=== PATIENT | male | born 1940 | race Caucasian/White ===

== ENCOUNTER 2018-03-01 15:05 | Inpatient (IN) ==
[2018-03-01] MEDS ORDERED: Naloxone 0.4 MG/ML INJ IVP PRN (17:44)
[2018-03-01 17:49] LABS: Basophils % 0.4 %; Eosinophils # 0.2 K/mcL (0.0-0.6); Eosinophils % 2.1 %; Hematocrit 25.9 % (37.5-50.1); Hemoglobin 8.2 g/dL (12.9-16.9); Immature Granulocytes % 0.6 % (0-4); Lymphocytes # 0.5 K/mcL (0.6-4.6); Lymphocytes % 5.2 %; Mean Corpuscular HGB Conc 31.7 g/dL (31.6-35.5); Mean Corpuscular Hemoglobin 26.4 pg (28.0-33.3); Mean Corpuscular Volume 83.3 fL (83.0-100.0); Mean Platelet Volume 8.3 fL (9.4-12.4); Monocytes # 0.7 K/mcL (0.0-1.3); Monocytes % 7.1 %; Neutrophils # 8.3 K/mcL (1.6-8.9); Platelet Count 264 K/mcL (140-400); Red Blood Count 3.11 M/mcL (4.19-5.50); Red Cell Distribution Width 14.3 % (11.5-14.5); Segmented Neutrophils % 84.6 %
[2018-03-01 18:11] LABS: BUN/Creatinine Ratio 18 (6-26); Blood Urea Nitrogen 16 mg/dL (8-23); Calcium 8.6 mg/dL (8.6-10.3); Carbon Dioxide 23 mEq/L (23-29); Chloride 104 mEq/L (98-107); Glucose 101 mg/dL (70-105); Osmolality,Calculated 281 (280-300); Potassium 3.8 mEq/L (3.5-5.1); Sodium 135 mEq/L (136-145); eGFR For Non-African Americans > 60 (> 60)
--- NOTE | 2018-03-01 18:15 | Internal Med History&Physical ---
Date of Encounter: 03/01/18 Time of Encounter: 18:11 Internal Medicine - H&P: HPI Chief complaint: Blood in stool; anemia Admitted From: Hospital to Hospital Transfer Plans for Post Hospital Care: Home History of present illness: The patient is a 77-year-old male. He is transferred to ICU from the [facility] in [place]. It was about 6 months ago when this patient was started on iron pills for treatment of his anemia. It was 4 days ago, when he had CBC repeated. 3 days later (yesterday) somebody called him and requested him to come to [place] emergency department. His hemoglobin from 02/25 was 6.7. Repeated one in [place] ER was 5.9. Associated with a WBC of 9.2 thousand. Subsequently, he was admitted to the [facility] in [place]. Then, he was transfused with 2 units of packed red blood cells. His last hemoglobin was checked today at 6 Moni was 7.1. The patient started having black stool in his bowel movements after initiation of treatment with iron pills. In the last a few weeks he noticed a little bit of blood in his stool (on several occasions). Denies abdominal pain, nausea and vomiting. He has never been diagnosed with a GI bleeding or other GI problem in the past. He takes occasionally 600 mg of ibuprofen for pain in his lower back and hips. He usually takes not more than a few tablets per week. The last one he took a few days ago. He does not take aspirin. 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 REVIEW OF SYSTEMS: All 14 organ systems were reviewed by me with the patient. Positive and pertinent negative findings are listed above. The rest of organ systems is negative. PHYSICAL EXAM: Skin: A little bit pale. Not showing any rash. Eyes: Sclera is white. There is no discharge from eyes. ENMT: Oral/pharyngeal mucosa is normal in appearance. There is no discharge from nose or ears. Respiratory: Normal breath sounds with no crackles and wheezes bilaterally. CV: Heart is regular with no gallop or murmur. GI: Abdomen is flat and soft with no palpable mass or visceromegaly. : There is no tenderness in patient's flanks bilaterally. Neuro exam: He has good strength in upper and lower extremities. He has normal eye movements. Psychiatric: He has normal affect. His thought process is appropriate to the situation. ADDITIONAL DATA: I am ordering a CBC, BMP and pro time INR. A/P: GI bleeding/acute blood loss anemia. GI diseases is consulted. They will proceed with upper and lower endoscopy tomorrow morning. I will keep him on nothing by mouth diet. He will get twice a day IV Protonix. H&H will be checked every 6 hours. He will get blood transfusion, if needed. Hypertension. We will hold his antihypertensives at this time. Gouty arthritis. I will hold his colchicine and allopurinol. Other problems seem to be stable/under control. See past medical history. Past Med Surg Social Fam HX - Past Medical History Medical history: arthritis, asthma, hypertension, osteoporosis Additional medical history: anemia, degenerative disk disease, hyperkalemia, gout, psoriasis Psychiatric history: no psych history - Past Surgical History Surgical History: no surgical history - Social History Smoking Status: Never smoker Alcohol use: none Drug use: none Internal Medicine - H&P: Meds Allergy/AdvReac Type Severity Reaction Status Date / Time Penicillins [PCN] Allergy Rash Verified 03/01/18 17:25 - Constitutional Vitals: Temp Pulse Resp BP Pulse Ox 98.2 F 72 24 133/73 97 03/01/18 16:00 03/01/18 17:00 03/01/18 17:00 03/01/18 17:00 03/01/18 17:00 General appearance: Present: A&O X 3, no acute distress, answers questions appropriately Exam: xx Internal Med - H&P Results - Labs CBC & Chem 7: 03/01/18 17:41 03/01/18 17:41 Labs: Short CBC 03/01/18 Range/Units 17:41 WBC 9.8 (4.3-11.1) K/mcL Hgb 8.2 L (12.9-16.9) g/dL Hct 25.9 L (37.5-50.1) % Plt Count 264 (140-400) K/mcL Neutrophils # 8.3 (1.6-8.9) K/mcL BMP 03/01/18 17:41 Sodium 135 L Potassium 3.8 Chloride 104 Carbon Dioxide 23 BUN 16 Creatinine 0.88 Glucose 101 Calcium 8.6 - Assessment and plan (1) GI bleed Current Visit: Yes Status: Acute Qualifiers: GI bleed type/associated pathology: unspecified gastrointestinal hemorrhage type Qualified Code(s): K92.2 - Gastrointestinal hemorrhage, unspecified (2) Acute blood loss anemia Current Visit: Yes Status: Acute (3) HTN (hypertension) Current Visit: Yes Status: Chronic Qualifiers: Hypertension type: essential hypertension Qualified Code(s): I10 - Essential (primary) hypertension (4) Gouty arthritis Current Visit: Yes Status: Chronic - Time Spent With Patient Total time spent is greater than 50% in coordination of care (as documented) at patient's floor/unit and/or counseling patient: 25 - 35 minutes - VTE Reasons for not Prescribing Prophylaxis: Medical contraindication (gi bleeding)
[2018-03-01 18:30] LABS: INR 1.3; Prothrombin Time 14.3 Seconds (9.4-12.1)
[2018-03-01] MEDS: Pantoprazole 40 MG VIAL IVP SCH (19:25)
[2018-03-01] MEDS: 0.9 % Sodium Chloride 1,000 ML IVC SCH (19:25)
[2018-03-01] MEDS ORDERED: Polyethylene Glycol 3350 255 GM POWDER PO ONE (19:59)
--- NOTE | 2018-03-01 20:09 | Gastroenterology Consult Note ---
Date of Encounter: 03/07/18 Time of Encounter: 19:00 - Assessment and plan (1) History of alcohol abuse Status: Suspected (2) GI bleed Status: Acute Qualifiers: GI bleed type/associated pathology: unspecified gastrointestinal hemorrhage type Qualified Code(s): K92.2 - Gastrointestinal hemorrhage, unspecified (3) Acute blood loss anemia Status: Acute (4) Gouty arthritis Status: Chronic - Time Spent With Patient Total time spent is greater than 50% in coordination of care (as documented) at patient's floor/unit and/or counseling patient: Greater than 35 minutes (Had to review the records from the [facility] in addition.) GI History of Present Illness - Data of Consult Patient: new to practice Requesting Physician: Siri Najera - Consult Narrative Reason for consult: Hematochezia, Anemia secondary to blood loss. Transferred from the [facility] History of present illness: Mr. Hoover is a 77 year old male who was transferred from the [facility] in [place] as the patient had passed a dark burgundy bowel movement and they did not have a sales manager [place] available. He apparently has been feeling weak for some weeks and a hemoglobin by the [facility] in [place] revealed 5.8 gm% - he was then called and asked to report to the [facility] in [place] which he did. He was given 2 units of packed cells and hemoglobin went up to 7.4 gm% He apparently spiked a fever during the transfusion. This was felt to be coincidental as this settled down fairly quickly. He told me he had been running intermittent fevers at home although he had not taken his temperature. He has never had a colonoscopy to date. Plan EGD and colonscopy - recommend 2 units of packed cells tonight in the ICU. Keep in ICU and watch for bleeding. Past Med Surg Social Fam HX - Past Medical History Medical history: arthritis, asthma, hypertension, osteoporosis Additional medical history: anemia, degenerative disk disease, hyperkalemia, gout, psoriasis Psychiatric history: no psych history - Past Surgical History Surgical History: no surgical history - Social History Smoking Status: Never smoker Alcohol use: none Drug use: none - Constitutional Constitutional: fatigue, fever(s) - Cardiovascular Additional Comment: NEGATIVE except a systolic murmur - Respiratory Additional Comment: Negative - Neurological Additional Comment: No focal deficit - Constitutional Vitals: Temp Pulse Resp BP Pulse Ox 98.2 F 74 14 145/65 96 03/01/18 16:00 03/01/18 19:38 03/01/18 19:00 03/01/18 19:00 03/01/18 19:00 - Head Head exam: Present: atraumatic Results - Labs CBC & Chem 7: 03/05/18 05:22 03/01/18 17:41 Labs: Last Result Calcium 8.6 mg/dL (8.6-10.3) 03/01/18 17:41 Entire Visit Hgb 8.2 g/dL (12.9-16.9) L 03/01/18 17:41 Hct 25.9 % (37.5-50.1) L 03/01/18 17:41 PT 14.3 Seconds (9.4-12.1) H 03/01/18 18:13 - ABG ABG results: PT/INR, D-dimer PT 14.3 Seconds (9.4-12.1) H 03/01/18 18:13 Consult Discharge Plan - Plan [facility]errals: [facility] [Primary Care Provider[facility] -
[2018-03-01 20:41] LABS: Hematocrit 23.2 % (37.5-50.1); Hemoglobin 7.5 g/dL (12.9-16.9)
[2018-03-02 00:33] LABS: Hematocrit 23.2 % (37.5-50.1); Hemoglobin 7.4 g/dL (12.9-16.9)
[2018-03-02] MEDS: Pantoprazole 40 MG VIAL IVP SCH ×2 (06:11→18:56)
[2018-03-02 06:12] LABS: Hematocrit 23.4 % (37.5-50.1); Hemoglobin 7.4 g/dL (12.9-16.9)
--- NOTE | 2018-03-02 07:42 | Anesthesia Evaluation PreOp ---
Date of Encounter: 03/02/18 Time of Encounter: 08:25 - Past History Planned Operation: EGD/colonoscopy Cardiac History: HTN, Hyperlipidemia, Other (can achieve 4 METS) Pulmonary History: Asthma PEWTER FABRICATOR History: Denies Any Significant HX Other Medical History: Bleeding Anesthesia History: No Prior Anesthetic Complications, Past Anesthesia (cataract surgery) Alcohol Use: none Drug use: none Medications and Allergies Allergy/AdvReac Type Severity Reaction Status Date / Time Penicillins [PCN] Allergy Rash Verified 03/01/18 17:25 - Meds/Allergy Pre-op Review Medications Reviewed: Yes Allergies Reviewed: Yes Beta Blockers on Current Med List: No Anesthesia Results - Labs 03/02/18 05:45 03/01/18 17:41 Anesthesia Exam Last Vital Signs Temp 98.3 F 03/02/18 08:15 Pulse 77 03/02/18 08:15 Resp 16 03/02/18 08:15 BP 142/75 03/02/18 08:15 Pulse Ox 99 03/02/18 08:15 Weight: 72 kg NPO (# of Hours): > 8 hrs - HEENT Pupil (Motor): Pupils equal, EOMI Mallampati: I Teeth: Missing, Poor dentition Oral Opening: Greater than 3 - PEWTER FABRICATOR LOC: Oriented - Cardiac Rhythm: Regular Murmur: Systolic - Pulmonary Breath Sounds: bilateral Clear Respiratory Effort: Symmetrical Anesthesia Assess/Plan ASA Score: 3 Modified Eveline Scale for Level of Consciousness: Cooperative, oriented, and tranquil Anesthetic Plan: MAC, Precautions (will administer meds slowly; murmur (no TTE available) of long-standing duration; excellent functional capacity; will not delay surgery for evaluation or records) Monitoring Plan: Standard Monitors Recovery Plan: PACU
[2018-03-02] MEDS ORDERED: Propofol 500 MG/50 ML INFUS..BTL ONE (08:33)
[2018-03-02] MEDS ORDERED: *HR* Etomidate 40 MG/20 ML VIAL IVP ONE (08:34)
--- NOTE | 2018-03-02 10:25 | Anesthesia Evaluation Post Op ---
Date of Encounter: 03/02/18 Time of Encounter: 09:30 - Vital Signs Vital Signs: Last Vital Signs Temp 98.3 F 03/02/18 08:15 Pulse 77 03/02/18 08:15 Resp 16 03/02/18 08:15 BP 142/75 03/02/18 08:15 Pulse Ox 99 03/02/18 08:15 - Lungs Lungs: Clear Ascult./Percussion - Airway Airway: Non-obstructed - Cardiovascular Regular Rate - Mental Status Mental Status: Alert & Oriented, Answers Appropriately - Pain Pain Scale: 1 - Nausea Vomiting Nausea Vomiting: Not Present - Hydration Hydration: NPO - Discharge PostOp Status: Transfer Patient to floor
[2018-03-02 12:33] LABS: Hematocrit 22.8 % (37.5-50.1); Hemoglobin 7.2 g/dL (12.9-16.9)
[2018-03-02] MEDS: 0.9 % Sodium Chloride 250 ML IVC SCH (14:00)
--- NOTE | 2018-03-02 14:32 | Gastroenterology Progress Note ---
Date of Encounter: 03/02/18 Time of Encounter: 09:00 - Assessment and plan (1) History of alcohol abuse Current Visit: Yes Status: Acute (2) GI bleed Current Visit: Yes Status: Acute Qualifiers: GI bleed type/associated pathology: unspecified gastrointestinal hemorrhage type Qualified Code(s): K92.2 - Gastrointestinal hemorrhage, unspecified (3) Acute blood loss anemia Current Visit: Yes Status: Acute (4) Gouty arthritis Current Visit: Yes Status: Chronic - Time Spent With Patient Total time spent is greater than 50% in coordination of care (as documented) at patient's floor/unit and/or counseling patient: - Subjective Interval history: Patient underwent EGD and colonoscopy(incomplete) today - large polypoid cir cumferential lesion in rectum starting about 10 cms into the rectum. - several hot bx taken. Was able to go through the narrow opening but, unable to see much beyond because, of presence of stool beyond. Keep on clear liquids and transfuse two more units of packed cells. Hemoglobin 7.4 gm% Team [facility]. Had a long discussion with patient and his . - Constitutional Vitals: Temp Pulse Resp BP Pulse Ox 98.2 F 74 17 147/73 98 03/02/18 14:15 03/02/18 14:23 03/02/18 14:23 03/02/18 14:23 03/02/18 14:23 Results - Labs CBC & Chem 7: 03/02/18 12:17 03/01/18 17:41 Labs: Last Result Calcium 8.6 mg/dL (8.6-10.3) 03/01/18 17:41 Entire Visit Hgb 7.2 g/dL (12.9-16.9) L 03/02/18 12:17 Hct 22.8 % (37.5-50.1) L 03/02/18 12:17 PT 14.3 Seconds (9.4-12.1) H 03/01/18 18:13 - ABG ABG results: PT/INR, D-dimer PT 14.3 Seconds (9.4-12.1) H 03/01/18 18:13 - VTE Reasons for not Prescribing Prophylaxis: Medical contraindication (gi bleeding) Consult Discharge Plan - Plan [facility]errals: [facility] [Primary Care Provider] -
[2018-03-02 19:56] LABS: Hematocrit 28.1 % (37.5-50.1)
[2018-03-02 19:57] LABS: Hemoglobin 8.9 g/dL (12.9-16.9)
--- NOTE | 2018-03-02 20:28 | Internal Med Progress Note ---
Hospitalist Progress Note - Encounter Date of Encounter: 03/02/18 Time of Encounter: 16:00 - Exam Vitals: Temp Pulse Resp BP Pulse Ox 98.7 F 75 16 145/66 98 03/02/18 16:40 03/02/18 20:00 03/02/18 20:00 03/02/18 20:00 03/02/18 20:00 Exam: xx - Assessment and Plan (1) GI bleed Current Visit: Yes Status: Acute (2) Acute blood loss anemia Current Visit: Yes Status: Acute (3) HTN (hypertension) Current Visit: Yes Status: Chronic (4) Gouty arthritis Current Visit: Yes Status: Chronic - Time Spent with Patient Total time spent is greater than 50% in coordination of care (as documented) at patient's floor/unit and/or counseling patient: 25 - 35 minutes Plan of Care Discussed with: patient Internal Medicine: Result - Labs CBC & Chem 7: 03/02/18 19:45 03/01/18 17:41 Labs: Short CBC 03/01/18 03/01/18 03/02/18 Range/Units 20:24 23:48 05:45 Hgb 7.5 L 7.4 L 7.4 L (12.9-16.9) g/dL Hct 23.2 L 23.2 L 23.4 L (37.5-50.1) % 03/02/18 03/02/18 Range/Units 12:17 19:45 Hgb 7.2 L 8.9 L D (12.9-16.9) g/dL Hct 22.8 L 28.1 L (37.5-50.1) % - ABG Interpretation ABG results: PT/INR, D-dimer PT 14.3 Seconds (9.4-12.1) H 03/01/18 18:13 - VTE Reasons for not Prescribing Prophylaxis: Medical contraindication (gi bleeding) Consult Discharge Plan - Plan [facility]errals: [facility] [Primary Care Provider] - (1) GI bleed Qualifiers: GI bleed type/associated pathology: unspecified gastrointestinal hemorrhage type Qualified Code(s): K92.2 - Gastrointestinal hemorrhage, unspecified (3) HTN (hypertension) Qualifiers: Hypertension type: essential hypertension Qualified Code(s): I10 - Essential (primary) hypertension
[2018-03-02] MEDS: 0.9 % Sodium Chloride 1,000 ML IVC SCH (23:33)
[2018-03-03 00:32] LABS: Hematocrit 26.6 % (37.5-50.1); Hemoglobin 8.6 g/dL (12.9-16.9)
[2018-03-03 06:07] LABS: Hematocrit 26.1 % (37.5-50.1); Hemoglobin 8.6 g/dL (12.9-16.9)
[2018-03-03] MEDS: Pantoprazole 40 MG VIAL IVP SCH (06:15)
[2018-03-03] MEDS ORDERED: CLOBETASOL PROPIONATE 15 GM TUBE TP PRN ×2 (10:43→11:13)
[2018-03-03] MEDS ORDERED: Naloxone 0.4 MG/ML INJ IVP PRN (11:13)
[2018-03-03] MEDS ORDERED: Pantoprazole 40 MG VIAL IVP SCH (18:00)
--- NOTE | 2018-03-03 23:58 | Internal Med Progress Note ---
Hospitalist Progress Note - Encounter Date of Encounter: 03/03/18 Time of Encounter: 17:00 - Subjective Interval History: SUBJECTIVE: The patient feels pretty good today. He is stronger. Denies abdominal pain, nausea and vomiting. He had a small bowel movement today morning; no blood was seen. OBJECTIVE: Skin: Free of rash and discoloration. ENMT: Oral/pharyngeal mucosa is normal in appearance. Eyes: Sclera is white. There is no discharge from eyes. Respiratory: Normal breath sounds; no crackles or wheezes. CV: Heart is regular; no gallop or murmur. GI: Abdomen is soft and not tender. There is no palpable mass or visceromegaly. Neuro: There is no focal deficits. 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 It is likely source of off and on bleeding. Today morning hemoglobin is 8.6 (after transfusion of 2 units of packed red blood cells); was 7.2 yesterday early afternoon. ASSESSMENT AND PLAN: Rectal mass/GI bleeding/acute blood loss anemia. The patient will need surgery. We are trying to transfer him to the [facility] system. He has no other insurance. Meanwhile, we will continue supportive treatments. H&H to be checked every 6 hours. Will advance his diet to cardiac. I will stop his IV Protonix. Hypertension. He does not need any antihypertensives at this time. Gouty arthritis. He is on oral allopurinol. - Exam Vitals: Temp Pulse Resp BP Pulse Ox 99.8 F H 88 14 151/57 96 03/03/18 18:18 03/03/18 18:18 03/03/18 18:18 03/03/18 18:18 03/03/18 18:18 Exam: xx - Assessment and Plan (1) Rectal mass Current Visit: Yes Status: Acute (2) GI bleed Current Visit: Yes Status: Acute (3) Acute blood loss anemia Current Visit: Yes Status: Acute (4) HTN (hypertension) Current Visit: Yes Status: Chronic (5) Gouty arthritis Current Visit: Yes Status: Chronic - Time Spent with Patient Total time spent is greater than 50% in coordination of care (as documented) at patient's floor/unit and/or counseling patient: 25 - 35 minutes Plan of Care Discussed with: patient Internal Medicine: Result - Labs CBC & Chem 7: 03/03/18 05:50 03/01/18 17:41 Labs: Short CBC 03/03/18 03/03/18 Range/Units 00:16 05:50 Hgb 8.6 L 8.6 L (12.9-16.9) g/dL Hct 26.6 L 26.1 L (37.5-50.1) % - ABG Interpretation ABG results: PT/INR, D-dimer PT 14.3 Seconds (9.4-12.1) H 03/01/18 18:13 - VTE Reasons for not Prescribing Prophylaxis: Medical contraindication (gi bleeding) Consult Discharge Plan - Plan [facility]errals: [facility] [Primary Care Provider] - (2) GI bleed Qualifiers: GI bleed type/associated pathology: unspecified gastrointestinal hemorrhage type Qualified Code(s): K92.2 - Gastrointestinal hemorrhage, unspecified (4) HTN (hypertension) Qualifiers: Hypertension type: essential hypertension Qualified Code(s): I10 - Essential (primary) hypertension
[2018-03-04] MEDS: Cyanocobalamin (B-12) 1,000 MCG TABLET PO SCH (08:42)
[2018-03-04] MEDS ORDERED: Cyanocobalamin (B-12) 1,000 MCG TABLET PO SCH (09:00)
[2018-03-04] MEDS ORDERED: Isovue-370 500 ML INFUS..BTL IV ONE (11:15)
[2018-03-04 12:13] LABS: Hematocrit 26.4 % (37.5-50.1); Hemoglobin 8.6 g/dL (12.9-16.9)
--- NOTE | 2018-03-04 14:09 | Discharge Summary ---
- NOTES TO OUTPATIENT PROVIDER Notes to Outpatient Provider: With PCP at the [facility] Orders not resulted at time of discharge: Pending orders 03/02/18 09:01 Surgical Pathology [PTH] Routine 03/04/18 14:30 abdominal/pelvis CT with contrast [CT abd pelvis w iv and oral] [CT] Stat 03/05/18 04:00 CBC [Complete Blood Count] [HEME] AM 0400 Date of Encounter: 03/05/18 Time of Encounter: 14:07 - Discharge Diagnosis (1) GI bleed Priority: Primary Status: Acute Qualifiers: Qualified Code(s): K92.2 - Gastrointestinal hemorrhage, unspecified (2) Acute blood loss anemia Priority: Primary Status: Acute (3) HTN (hypertension) Priority: Secondary Status: Chronic Qualifiers: Qualified Code(s): I10 - Essential (primary) hypertension (4) Gouty arthritis Priority: Secondary Status: Chronic (5) Rectal mass Priority: Primary Status: Acute Hospital course: Mr. Hoover is a 77 year old male with PMH pf alcohol abuse, arthritis and chronic anemia. Patient was in his usual state of health till 4 days prior to presentation when he had a CBC done and was called and requested him to come to [place] emergency department. His hemoglobin from 02/25 was 6.7. Repeated one in [place] ER was 5.9. Associated with a WBC of 9.2 thousand. Subsequently, he was admitted to the [facility] in [place]. Then, he was transfused with 2 units of packed red blood cells. His last hemoglobin was checked on admission on 03/01 was 7.1. He reported having melanotic stools and GI was consulted. He received 2 more units of red blood cells here at this facility. He remained hemodynamically stable throughout his admission here He is s/p EGD and colonoscopy (incomplete) 03/02 which showed a large polyploid circumferential lesion in rectum starting about 10 cms into the rectum. - Several hot bx taken. On 03/04, arrangement made for the patient to transfer to the [facility], however, patient opted for a transfer to [facility] because it is closer to his home and he has been there before. dish room worker notified and attempted to verify patient's insurance. On 03/05, patient again seen at the bedside with his with no new complaints, bleeding since stopped, hemoglobin stable at 8.2 status post 2 units of blood transfusion and he has no new complaints. He is adamant on going to [facility] with or without confirmation of his insurance Calls was made to [facility] for transfer to the hospitalist service and for further management. Plan of care discussed with the patient verbalized understanding. Discharge happened on 03/05 not 03/04, as above Discharge discussed with: patient, social work, case management - Time Spent with Patient Total time spent providing and/or coordinating discharge services: Greater than 30 minutes (55 mins spent with face to face, calls to transfer center, discussion with SW and documentation) - Discharge Medications Home Medications: Acetaminophen [Tylenol] 325 - 650 mg PO DAILY PRN 03/02/18 [History] Allopurinol [Zyloprim 100 MG] 100 mg PO DAILY 03/02/18 [History] Amlodipine Besylate 10 mg PO DAILY 03/02/18 [History] Ascorbic Acid [C-500] 1,000 mg PO DAILY 03/02/18 [History] Clobetasol Propionate 0.05% [Temovate] 1 appl TP DAILY PRN 03/02/18 [History] Cyanocobalamin (B-12) [Vitamin B12] 1,000 mcg PO DAILY 03/02/18 [History] Ferrous Sulfate [Iron] 325 mg PO BID 03/02/18 [History] Lactobacillus [Culturelle] 1 each PO DAILY 03/02/18 [History] Losartan Potassium [Cozaar] 100 mg PO DAILY 03/02/18 [History] Metoprolol [Lopressor] 50 mg PO BID 03/02/18 [History] Allergies/Adverse Reactions: Allergy/AdvReac Type Severity Reaction Status Date / Time Penicillins [PCN] Allergy Rash Verified 03/01/18 17:25 Date of admission: 03/01/18 16:08 [facility] care physician: [facility] Consults: 03/01/18 18:22 Consult to Gastroenterology [CONS] Routine Consulting Provider: [facility] Reason for Consult: GI bleed Time Notified: 17:00 Call Completed: Yes 03/02/18 12:11 Consult to Case Management [CONS] Routine Comment: TRANSFER TO [facility] NEEDED.. 03/04/18 10:45 Consult to Surgery [CONS] Routine Consulting Provider: Surgery [facility] Reason for Consult: Rectal mass, kindly evaluate for surgery Time Notified: 10:51 Call Completed: Yes 03/04/18 11:19 Consult to Oncology [CONS] Stat Consulting Provider: Oncology [facility] Reason for Consult: Rectal mass Call Completed: No Discharging clinician: Tom Pacheco Anticipated date of discharge: 03/04/18 - Constitutional Vitals: Temp Pulse Resp BP Pulse Ox 98.2 F 76 16 157/68 99 03/04/18 12:16 03/04/18 12:16 03/04/18 12:16 03/04/18 12:16 03/04/18 12:16 General appearance: Present: A&O X 3, no acute distress, answers questions mark ropriately Exam: On exam, he is not in distress Skin: A little bit pale. Not showing any rash. Eyes: Sclera is white. There is no discharge from eyes. ENMT: Oral/pharyngeal mucosa is normal in appearance. There is no discharge from nose or ears. Respiratory: Normal breath sounds with no crackles and wheezes bilaterally. CV: Heart is regular with loud systolic murmur GI: Abdomen is flat and soft with no palpable mass or visceromegaly. : There is no tenderness in patient's flanks bilaterally. Neuro exam: He has good strength in upper and lower extremities. He has normal eye movements. Psychiatric: He has normal affect. His thought process is appropriate to the situation. - Patient Status Disposition: Transfer [facility] Hosp Condition: Fair Functional capacity at discharge: independent ambulation Overall status at discharge: patient is not back to baseline - Discharge Instructions Follow [facility] With: [facility] [Primary Care Provider] - - Diet and Activity Activity: resume usual activities as tolerated Diet: low salt diet - VTE Reasons for not Prescribing Prophylaxis: Medical contraindication (gi bleeding)
[2018-03-04] MEDS ORDERED: Isovue-370 500 ML INFUS..BTL PO ONE (14:52)
--- NOTE | 2018-03-04 16:18 | General Surgery Consult Note ---
<IgorAnthony S - Last Filed: 03/04/18 15:48> Date of Encounter: 03/04/18 Time of Encounter: 11:00 Assessment and Plan (1) Rectal mass Current Visit: Yes Status: Acute Rectal mass identified on colonoscopy (03/02) Ordered CT ab/pelvis with IV and oral contrast to stage mass, showed rectal mass with evidence of local disease spread, colonic diverticulosis without diverticulitis, asymmetric bladder wall thickening (possibly cystitis), small BL pleural effusions Rectal mass biopsied, waiting path results CEA normal at 1.5 Consulted oncology, will appreciate recommendations Will continue to follow, patient may be transferred to another facility per his wishes (2) GI bleed Current Visit: Yes Status: Acute Patient has received a total of 4 units of PRBCs (2 at [facility] and 2 at [facility]) Patient's Hgb is stable 8.6 > 8.6 today BP 155/65 today Patient states he has not had any gross GI bleeding since his colonoscopy (03/02) Will trend H/H Qualifiers: GI bleed type/associated pathology: unspecified gastrointestinal hemorrhage type Qualified Code(s): K92.2 - Gastrointestinal hemorrhage, unspecified (3) HTN (hypertension) Current Visit: Yes Status: Chronic Management per primary team BP 155/65 Qualifiers: Hypertension type: essential hypertension Qualified Code(s): I10 - Essential (primary) hypertension History of Present Illness Consult date: 03/04/18 Reason for consult: other (rectal mass) Requesting physician: Tom Pacheco History of present illness: 77 year old male with PMHx of HTN presented to [facility] (03/01) with GI bleeding. Surgery was consulted for rectal mass identified on colonoscopy. Patient states he went to [facility] in [place] a few months ago for fatigue and was found to be anemic. He was started on iron supplements and continued to have his Hgb monitored. Patient states his hemoglobin dropped to 6.9 during his most recent visit and he was transferred to [facility]. Patient was found to have GI bleeding and given 2 units of PRBCs. He was transferred to [facility] for further care on 03/01, given 2 more units of PRBCs, and had a colonoscopy on 03/02. The colonoscopy showed a rectal mass which was biopsied. Patient states he has not had any rectal bleeding since the colonoscopy. He denies abdominal pain, nausea, vomiting. Patient had non-bloody BM yesterday. Patient denies surgical history. Patient admits to a family history of prostate cancer in brother. Of note, patient is asking to be transferred to [facility] because he is from the area and has family there. Past Med Surg Social Fam HX - Past Medical History Medical history: arthritis, asthma, hypertension, osteoporosis Additional medical history: anemia, degenerative disk disease, hyperkalemia, gout, psoriasis Psychiatric history: no psych history - Past Surgical History Surgical History: no surgical history - Social History Smoking Status: Never smoker Alcohol use: none Drug use: none Medications and Allergies Acetaminophen [Tylenol] 325 - 650 mg PO DAILY PRN 03/02/18 [History] Allopurinol [Zyloprim 100 MG] 100 mg PO DAILY 03/02/18 [History] Ascorbic Acid [C-500] 1,000 mg PO DAILY 03/02/18 [History] Clobetasol Propionate 0.05% [Temovate] 1 appl TP DAILY PRN 03/02/18 [History] Cyanocobalamin (B-12) [Vitamin B12] 1,000 mcg PO DAILY 03/02/18 [History] Ferrous Sulfate [Iron] 325 mg PO BID 03/02/18 [History] Losartan Potassium [Cozaar] 100 mg PO DAILY 03/02/18 [History] Metoprolol [Lopressor] 50 mg PO BID 03/02/18 [History] RX: Amlodipine Besylate 10 mg PO DAILY 03/02/18 [History] RX: Lactobacillus [Culturelle] 1 each PO DAILY 03/02/18 [History] Allergy/AdvReac Type Severity Reaction Status Date / Time Penicillins [PCN] Allergy Rash Verified 03/01/18 17:25 Review of Systems All systems PM: The remainder of the systems were reviewed and are negative General Surgery Exam Initial Vital Signs Temp Pulse Resp BP Pulse Ox 98.2 F 67 14 97/77 96 03/01/18 16:00 03/01/18 16:00 03/01/18 16:00 03/01/18 16:00 03/01/18 16:00 - General physical appearance well developed, well nourished - Respiratory normal expansion, normal respiratory effort - Cardiovascular Cardiovascular exam: Present: RRR - Abdomen Abdomen general surgery: Present: bowel sounds present, soft, non tender - Integumentary Integumentary general surgery: Present: warm and dry, no abnormal pigmentation - Psychiatric Psychiatric general surgery: Present: A&Ox3, appropriate Exam Initial Vital Signs Temp Pulse Resp BP Pulse Ox 98.2 F 67 14 97/77 96 03/01/18 16:00 03/01/18 16:00 03/01/18 16:00 03/01/18 16:00 03/01/18 16:00 Results - Labs 03/04/18 11:50 03/01/18 17:41 Abnormal lab results RBC 3.11 M/mcL (4.19-5.50) L 03/01/18 17:41 Hgb 8.6 g/dL (12.9-16.9) L 03/04/18 11:50 Hct 26.4 % (37.5-50.1) L 03/04/18 11:50 MCH 26.4 pg (28.0-33.3) L 03/01/18 17:41 MPV 8.3 fL (9.4-12.4) L 03/01/18 17:41 Lymphocytes # 0.5 K/mcL (0.6-4.6) L 03/01/18 17:41 PT 14.3 Seconds (9.4-12.1) H 03/01/18 18:13 Sodium 135 mEq/L (136-145) L 03/01/18 17:41 All other labs normal. Consult Discharge Plan - Plan [facility]errals: [facility]Primary Care Provider[facility] - <Lan Palomares - Last Filed: 03/04/18 23:30> Review of Systems All systems PM: The remainder of the systems were reviewed and are negative General Surgery Exam Initial Vital Signs Temp Pulse Resp BP Pulse Ox 98.2 F 67 14 97/77 96 03/01/18 16:00 03/01/18 16:00 03/01/18 16:00 03/01/18 16:00 03/01/18 16:00 Exam Initial Vital Signs Temp Pulse Resp BP Pulse Ox 98.2 F 67 14 97/77 96 03/01/18 16:00 03/01/18 16:00 03/01/18 16:00 03/01/18 16:00 03/01/18 16:00 Results - Labs 03/04/18 11:50 10/27/18 17:41 Abnormal lab results RBC 3.11 M/mcL (4.19-5.50) L 03/01/18 17:41 Hgb 8.6 g/dL (12.9-16.9) L 03/04/18 11:50 Hct 26.4 % (37.5-50.1) L 03/04/18 11:50 MCH 26.4 pg (28.0-33.3) L 03/01/18 17:41 MPV 8.3 fL (9.4-12.4) L 03/01/18 17:41 Lymphocytes # 0.5 K/mcL (0.6-4.6) L 03/01/18 17:41 PT 14.3 Seconds (9.4-12.1) H 03/01/18 18:13 Sodium 135 mEq/L (136-145) L 03/01/18 17:41 All other labs normal. - Attending Attestation I examined this patient and my medical decision-making was reviewed with the Resident Physician. I agree with the documented findings, disposition and treatment plan as described except to the extent set forth below. The patient is seen and evaluated with resident on rounds. I personally reviewed the endoscopic images. Findings are consistent with a bleeding rectal cancer. I have ordered CAT scan of the abdomen and pelvis as well as CEA lev els. Biopsies are pending at time of consultation and I imagine will be available tomorrow. He will require neoadjuvant therapy with chemotherapy and radiation prior to any attempt at surgical resection. We will get oncology on board as soon as possible. Colostomy diversion for obstruction only in an emergency. Lan Palomares MD FACS
--- NOTE | 2018-03-04 17:01 | Oncology Inp Consult Note ---
<Mary Ann Arredondo L - Last Filed: 03/05/18 13:01> Date of Encounter: 03/04/18 Time of Encounter: 16:00 Assessment and Plan (1) Rectal mass Status: Acute Assessment and plan: Colonoscopy 03/02/18 revealed a polypoid paritally obstructing large mass in the proximal rectum and in the mid rectum. The mass is circumferential. Length of mass was unable to be determined secondary to poor preparation. Biopsy was obtained. 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 CT abdomen/pelvis with IV contrast-ordered, final report pending Will need CT chest with IV contrast to complete staging (need for Pelvic MRI is TBD) CEA- 1.5 Further treatment recommendations pending CT chest/abdomen/pelvis to determine extent of disease and appropriate for upfront resection versus management of metastatic disease (2) Acute blood loss anemia Status: Acute Assessment and plan: Secondary to rectal mass Hgb 8.6 S/P 2 units PRBC Microcytic, Hypochromic anemia Check Iron panel and ferritin - Data of Consult Patient: new to practice Consult date: 03/04/18 Requesting Physician: Tom Pacheco MD Primary Care Provider: PCP [place] - Consult Narrative Reason for consult: Rectal adenocarcinoma History of present illness: Mr. Hoover is a 77 year old male with past medical history significant for HTN, presented to [facility] as transfer to [facility] on 03/01/18 with GIB. He has a history of CASEY that was diagnosed about 6 months ago, he has been on oral iron. He presented to [facility] for a blood transfusion and transferred to [facility] for concern for active GIB. He has had melanic stools since starting oral iron, he does noted occasional hematochezia at times. He denies abdominal pain, nausea, vomiting, diarrhea, appetite changes or unintended weight loss. No personal history of cancer, patients brother has a history of prostate cancer. GI was consulted upon his admission EGD 03/02/18 reveals gastritis, no stigmata of bleeding. Colonoscopy 03/02/18 revealed a polypoid paritally obstructing large mass in the proximal rectum and in the mid rectum. The mass is circumferential. Length of mass was unable to be determined secondary to poop preparation. Biopsy was obtained. 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 Past Med Surg Social Fam HX - Past Medical History Medical history: arthritis, asthma, hypertension, osteoporosis Additional medical history: anemia, degenerative disk disease, hyperkalemia, gout, psoriasis Psychiatric history: no psych history - Past Surgical History Surgical History: no surgical history - Social History Smoking Status: Never smoker Alcohol use: none Drug use: none Medications and Allergies Acetaminophen [Tylenol] 325 - 650 mg PO DAILY PRN 03/02/18 [History] Allopurinol [Zyloprim 100 MG] 100 mg PO DAILY 03/02/18 [History] Ascorbic Acid [C-500] 1,000 mg PO DAILY 03/02/18 [History] Clobetasol Propionate 0.05% [Temovate] 1 appl TP DAILY PRN 03/02/18 [History] Cyanocobalamin (B-12) [Vitamin B12] 1,000 mcg PO DAILY 03/02/18 [History] Ferrous Sulfate [Iron] 325 mg PO BID 03/02/18 [History] Losartan Potassium [Cozaar] 100 mg PO DAILY 03/02/18 [History] Metoprolol [Lopressor] 50 mg PO BID 03/02/18 [History] RX: Amlodipine Besylate 10 mg PO DAILY 03/02/18 [History] RX: Lactobacillus [Culturelle] 1 each PO DAILY 03/02/18 [History] Allergy/AdvReac Type Severity Reaction Status Date / Time Penicillins [PCN] Allergy Rash Verified 03/01/18 17:25 Constitutional: Present: fatigue, weakness. Absent: anorexia, chills, fever(s), weight loss Eyes: Absent: change in vision Nose, mouth and throat: Absent: dysphagia, odynophagia Cardiovascular: Absent: chest pain, palpitations Gastrointestinal: Present: hematochezia, melena. Absent: abdominal pain, change in bowel habits, constipation, diarrhea, hematemesis, nausea, vomiting Additional comments: denies dysuria Musculoskeletal: Present: muscle weakness Integumentary: Absent: wounds Neurological: Absent: focal weakness, frequent falls Psychiatric: Absent: change in appetite Hematologic/Lymphatic: Present: as per HPI Oncology - Exam - Constitutional Vitals: Temp Pulse Resp BP Pulse Ox 98.8 F 78 15 155/65 97 03/04/18 15:33 03/04/18 15:33 03/04/18 15:33 03/04/18 15:33 03/04/18 15:33 General appearance: cooperative, no acute distress, no febrile - Head Head exam: Present: atraumatic - Eye Eye exam: Present: normal appearance - ENT ENT exam: Present: mucous membranes moist - Respiratory Respiratory exam: Present: CTAB. Absent: respiratory distress - Cardiovascular Cardiovascular exam: Present: RRR, +S1, +S2 - GI/Abdominal GI/Abdominal exam: Present: normal bowel sounds, soft. Absent: guarding, rebound, tenderness - Extremities Exam Extremities exam: Absent: calf tenderness - Neurological Exam Neurological exam: Present: alert, oriented X3, no focal deficits, strengths equal and symetr throughout - Psychiatric Psychiatric exam: Present: normal affect, normal mood - Skin Skin exam: Present: dry, intact, normal color, warm Consult Discharge Plan - Plan [facility]errals: [facility] [Primary Care Provider] - <Tho Gonsalez - Last Filed: 03/05/18 17:20> Date of Encounter: 03/05/18 - Data of Consult Requesting Physician: Tom Pacheco MD Primary Care Provider: PCP [place] - Consult Narrative History of present illness: Patient with severe anemia hopsitalized with bleeding s/p colonoscopy findings reviewed discussed with patient. He denied wt loss. Final path pending. He will be a candidate for neoadjuvant chemoradiation, surgery once staging/path is available. He wishes to receive treatment close rto home in [place]. I examined this patient and my medical decision-making was reviewed with the Advanced Practice Nurse, Mary Ann Arredondo. I agree with the documented findings, disposition and treatment plan as described except to the extent set forth below. Oncology - Exam - Constitutional Vitals: Temp Pulse Resp BP Pulse Ox 98.7 F 77 16 149/63 97 03/05/18 06:26 03/05/18 06:26 03/05/18 06:26 03/05/18 06:26 03/05/18 06:26 Oncology - Results Labs: 03/05/18 03/04/18 03/04/18 05:22 11:50 11:50 WBC 6.6 RBC 3.12 L Hgb 8.2 L 8.6 L Hct 25.0 L 26.4 L MCV 80.1 L MCH 26.3 L MCHC 32.8 RDW 15.3 H Plt Count 181 MPV 8.4 L Immature Gran % 0.8 Seg Neutrophils % 75.0 Lymphocytes % 8.8 Monocytes % 11.5 Eosinophils % 3.3 Basophils % 0.6 Neutrophils # 5.0 Lymphocytes # 0.6 Monocytes # 0.8 Eosinophils # 0.2 Basophils # 0.0 PT INR Sodium Potassium Chloride Carbon Dioxide BUN Creatinine Est GFR ( Amer) Est GFR (Non-Af Amer) BUN/Creatinine Ratio Glucose POC Glucose Calculated Osmolality Calcium Carcinoembryonic Ag 1.5 Blood Type Antibody Screen Crossmatch 03/03/18 03/03/18 03/02/18 05:50 00:16 19:45 WBC RBC Hgb 8.6 L 8.6 L 8.9 L D Hct 26.1 L 26.6 L 28.1 L MCV MCH MCHC RDW Plt Count MPV Immature Gran % Seg Neutrophils % Lymphocytes % Monocytes % Eosinophils % Basophils % Neutrophils # Lymphocytes # Monocytes # Eosinophils # Basophils # PT INR Sodium Potassium Chloride Carbon Dioxide BUN Creatinine Est GFR ( Amer) Est GFR (Non-Af Amer) BUN/Creatinine Ratio Glucose POC Glucose Calculated Osmolality Calcium Carcinoembryonic Ag Blood Type Antibody Screen Crossmatch 03/02/18 03/02/18 03/01/18 12:17 05:45 23:48 WBC RBC Hgb 7.2 L 7.4 L 7.4 L Hct 22.8 L 23.4 L 23.2 L MCV MCH MCHC RDW Plt Count MPV Immature Gran % Seg Neutrophils % Lymphocytes % Monocytes % Eosinophils % Basophils % Neutrophils # Lymphocytes # Monocytes # Eosinophils # Basophils # PT INR Sodium Potassium Chloride Carbon Dioxide BUN Creatinine Est GFR ( Amer) Est GFR (Non-Af Amer) BUN/Creatinine Ratio Glucose POC Glucose Calculated Osmolality Calcium Carcinoembryonic Ag Blood Type Antibody Screen Crossmatch 03/01/18 03/01/18 03/01/18 20:24 20:24 18:13 WBC RBC Hgb 7.5 L Hct 23.2 L MCV MCH MCHC RDW Plt Count MPV Immature Gran % Seg Neutrophils % Lymphocytes % Monocytes % Eosinophils % Basophils % Neutrophils # Lymphocytes # Monocytes # Eosinophils # Basophils # PT 14.3 H INR 1.3 Sodium Potassium Chloride Carbon Dioxide BUN Creatinine Est GFR ( Amer) Est GFR (Non-Af Amer) BUN/Creatinine Ratio Glucose POC Glucose Calculated Osmolality Calcium Carcinoembryonic Ag Blood Type A POSITIVE Antibody Screen NEGATIVE Crossmatch See Detail 03/01/18 03/01/18 03/01/18 17:41 17:41 16:05 WBC 9.8 RBC 3.11 L Hgb 8.2 L Hct 25.9 L MCV 83.3 MCH 26.4 L MCHC 31.7 RDW 14.3 Plt Count 264 MPV 8.3 L Immature Gran % 0.6 Seg Neutrophils % 84.6 Lymphocytes % 5.2 Monocytes % 7.1 Eosinophils % 2.1 Basophils % 0.4 Neutrophils # 8.3 Lymphocytes # 0.5 L Monocytes # 0.7 Eosinophils # 0.2 Basophils # 0.0 PT INR Sodium 135 L Potassium 3.8 Chloride 104 Carbon Dioxide 23 BUN 16 Creatinine 0.88 Est GFR ( Amer) > 60 Est GFR (Non-Af Amer) > 60 BUN/Creatinine Ratio 18 Glucose 101 POC Glucose 98 Calculated Osmolality 281 Calcium 8.6 Carcinoembryonic Ag Blood Type Antibody Screen Crossmatch - Attending Attestation I examined this patient and my medical decision-making was reviewed with the Advanced Practice Nurse, Mary Ann Arredondo. I agree with the documented findings, disposition and treatment plan as described except to the extent set forth below. Inpatient Charges Provider: Dr. Deven Gonsalez Consult - Inpatient: [id number]
[2018-03-04] MEDS: 0.9 % Sodium Chloride 250 ML IVC SCH ×2 (20:08→20:10)
[2018-03-04] MEDS: 0.9 % Sodium Chloride 1,000 ML IVC SCH (20:10)
[2018-03-05 05:41] LABS: Basophils % 0.6 %; Eosinophils # 0.2 K/mcL (0.0-0.6); Eosinophils % 3.3 %; Hemoglobin 8.2 g/dL (12.9-16.9); Immature Granulocytes % 0.8 % (0-4); Lymphocytes # 0.6 K/mcL (0.6-4.6); Lymphocytes % 8.8 %; Mean Corpuscular HGB Conc 32.8 g/dL (31.6-35.5); Mean Corpuscular Hemoglobin 26.3 pg (28.0-33.3); Mean Corpuscular Volume 80.1 fL (83.0-100.0); Mean Platelet Volume 8.4 fL (9.4-12.4); Monocytes # 0.8 K/mcL (0.0-1.3); Monocytes % 11.5 %; Platelet Count 181 K/mcL (140-400); Red Blood Count 3.12 M/mcL (4.19-5.50); Red Cell Distribution Width 15.3 % (11.5-14.5)
[2018-03-05 06:40] VITALS: BP 149/63
[2018-03-05] MEDS: Cyanocobalamin (B-12) 1,000 MCG TABLET PO SCH (08:52)
--- NOTE | 2018-03-05 11:43 | Event Note ---
Date of Encounter: 03/05/18 Time of Encounter: 11:41 No new events overnight Patient adamant on going to [facility], regardless of insurance Calls made to [facility], Dr. Mack is the accepting physician, and patient is transferred in stable clinical condition See discharge summary dictated on 03/04, edited today 03/05 for further details
--- NOTE | 2018-03-07 19:10 | Electrocardiograph Report ---
[address] [address] Test Date: 2018-03-03 Pat Name: William Hoover Department: 112 Room: 3A37 Gender: M Machine Folder: : 1940 Requested By: Tom Pacheco Order Number: [id number] Reading MD: Primo Landin Measurements Intervals [place] Rate: 92 P: 68 [place]: 220 QRS: -74 QRSD: 144 T: 81 QT: 402 QTc: 452 Interpretive Statements SINUS RHYTHM WITH FIRST DEGREE AV BLOCK WITH OCCASIONAL VENTRICULAR PREMATURE COMPLEXES RIGHT BUNDLE BRANCH BLOCK LEFT ANTERIOR FASCICULAR BLOCK Electronically Signed On 03-07-2018 19:08:36 EDT by Primo Landin
== END 2018-03-05 14:57 | disposition critical access hospital (66) | DRG 374 ==
LOC: ICNU 16:08 → SUATTDRO 16:08 → 3ANU 03-03 14:07
PROVIDERS: ADMIT Internal Medicine Nephrology; ATTEND Internal Medicine